=== PATIENT | male | born 1995 | race Two or more races ===

== ENCOUNTER 2024-01-01 18:13 | Emergency (ER) | payer MEDICAID, SELFPAY ==
[2024-01-01 18:37] VITALS: BP 133/83; PULSE 108; RESP 18; TEMP 36.9; O2SAT 99; BMI 25.0
--- NOTE | 2024-01-01 18:56 | EKG_ITS ---
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
--- NOTE | 2024-01-01 18:56 | PD.EDABDPN ---
ED Abdominal Pain RME/HPI General Chief Complaint: Abdominal Pain Stated complaint: ABD PAIN X TODAY; VOMITING, DIARRHEA Time seen by provider: 01/01/24 18:47 Arrival date/time: 01/01/24 18:13 RME / HPI RME / HPI narrative: Dr. Scruggs?s Main ED Evaluation: Patient is a 28-year-old male with no significant medical history who presents to the emergency department complaining of about 10 hours of generalized abdominal pain with multiple episodes of nausea with vomiting as well as diarrhea today. This is nonbilious and nonbloody emesis. Patient's diarrhea is normal stool color. Patient denies chest pain or dyspnea. Patient states no fevers, shakes, chills, sweats. No prior abdominal surgeries. Patient denies testicular pain, flank pain, recent trauma. Related Data Previous Rx's ?Medication ?Instructions ?Recorded ibuprofen 600 mg tablet 600 mg PO TID PRN pain #30 tabs 03/28/22 ondansetron 4 mg disintegrating 4 mg PO Q8H PRN nausea and 01/01/24 tablet vomiting 3 days #10 tabs Allergies Allergy/AdvReac Type Severity Reaction Status Date / Time No Known Allergies Allergy Verified 01/01/24 18:15 Review of Systems Review of Systems Systems Reviewed: All systems reviewed, normal except as documented Past Medical History Social History SMOKING STATUS: Never smoker ED Exam Narrative Physical exam: GENERAL APPEARANCE: alert and oriented x 4, well-developed, well-nourished, in moderate distress VITALS: All vitals were reviewed and the pulse ox is 99% on room air, which is normal according to my interpretation. HEENT: Normocephalic, atraumatic; pupils equal, round, reactive to light; EOMI; mucous membranes pink, moist; oropharynx clear NECK: Supple LUNGS: CTABL; no wheezes, no rales, no rhonchi HEART: Tachycardic, regular rhythm; normal S1, S2; no murmurs ABDOMEN: non distended; normal BS; soft, generalized mild abdominal tenderness, no guarding, no rebound; no masses, no organomegaly, no hernia BACK: no CVA tenderness EXTREMITIES: atraumatic; no edema NEUROLOGIC: awake; alert and oriented x4; cranial nerves II-XII grossly intact; no focal sensory or motor deficits PSYCHIATRIC: appropriate mood and affect SKIN: warm, dry, normal color; no rashes Course Course Course Narrative: 2155: Patient on ree-xam is feeling much better. Repeat abdominal exam is completely benign. Patient's heart rate is normalized. Will discharge and will give note for work. Strict return instructions given. Quality Measures none Orders Category Date Time Status EKG (ED ONLY) *Do not use* NOW Care 01/01/24 18:56 Completed Insert IV STAT Care 01/01/24 18:54 Completed Miscellaneous Nursing Order NOW Care 01/01/24 21:24 Completed NPO STAT Care 01/01/24 18:54 Completed Discharge Routine Discharge 01/01/24 21:57 Active EKG (ED Only) Stat Exams 01/01/24 18:56 Draft XR chest 1V portable Stat Exams 01/01/24 18:59 Completed CBC Stat Lab 01/01/24 19:24 Completed Comprehensive Metabolic Panel Stat Lab 01/01/24 19:24 Completed Lipase Stat Lab 01/01/24 19:24 Completed Magnesium Stat Lab 01/01/24 19:24 Completed Famotidine Inj [Pepcid Inj] Med 01/01/24 20:19 Discontinued 20 mg IVP X1 ONE Famotidine [Pepcid] Med 01/01/24 18:54 Discontinued 20 mg PO X1 ONE Morphine Inj Med 01/01/24 18:54 Discontinued 2 mg IVP Q30M PRN Ondansetron Inj [Zofran Inj] Med 01/01/24 18:54 Discontinued 4 mg IV Q1H PRN Sodium Chloride 0.9% 1000 ml [Ns] 1,000 ml Med 01/01/24 18:54 Discontinued IV 999 mls/hr Vital Signs Vital signs: Vital Signs Temperature 98.5 F 01/01/24 18:37 Pulse Rate 108 H 01/01/24 18:37 Respiratory Rate 18 01/01/24 18:37 Blood Pressure 133/83 H 01/01/24 18:37 Pulse Oximetry (%) 99 01/01/24 18:37 Oxygen Delivery Method Room Air 01/01/24 18:37 Abdominal Pain MDM MDM Narrative MDM Narrative:: Plan is to put an IV, hydrate, send labs including EKG, chest x-ray. Reevaluate in light of the labs. 19:02 EKG sinus tachycardia at 105. Normal axis no ectopy. No signs of acute ischemia. QRS 87, QTc 379 Patient is a 28-year-old male who presented to the emergency department with nausea, vomiting and diarrhea x 1 day. He was initially mildly tachycardic but otherwise his exam was reassuring. Patient was hydrated, medicated and a workup was ordered. Patient's workup revealed leukocytosis but otherwise reassuring studies. After hydration patient's tachycardia resolved as did his nausea with medication. Patient feels much better and was discharged home with prescriptions. He was very much encouraged to return for any worsening and otherwise will follow-up with his primary care doctor within the next several days. Patient data External records reviewed:: [facility] previous records (Per chart review, patient has no relevant previous ED visits or admissions to this facility.) Clinical information provided by:: patient Social determinants that could affect healthcare access:: none Patient has the following chronic illnesses:: none How is presenting disease/condition affected by chronic disease/condition?: no chronic disease Evaluation data The following diagnostics were reviewed and interpreted by me:: lab results, radiology exam(s) and EKG tracing(s) Lab and/or radiology exams considered but not ordered:: none Interpretation Summary: WBC count is elevated at 15.7, CMP is normal, Lipase is normal, UA is unremarkable, UDS is negative, according to my interpretation. CXR is negative for rib fractures, normal cardiac silhouette, no infiltrates, sharp diaphragmatic edge, according to my interpretation. EKG done at 1902, sinus tachycardia, rate of 105, normal axis, no ectopy, no acute ischemia, according to my interpretation. ---- [facility] Report [facility] [id number] Birthdate: 1995 Age/Sex: 28 / M Location: [facility] Attending Dr: Ordering Physician: Aditya Scruggs MD Date of Service: 01/01/24 Procedure(s): XR chest 1V portable Accession Number(s): [id number] cc: Nestor Livingston MD; NO PRIMARY/FAMILY,PHYSICIAN; Aditya Scruggs MD~ Examination: PA chest single view Technique: Upright PA chest single view Exam date and time: January 01, 2024 1903 hrs. Indications: Coughing today. Findings: Normal heart size Lungs are clear. The osseous structures are intact Impression: No active disease Dictated By: Nestor Livingston MD Signed By: <Electronically signed by Nestor Livingston MD in OV> 01/01/245 Medications / Prescriptions Medications or Prescriptions considered but not ordered:: none Medication administrations:: Medication Administration History Discontinued Medications Famotidine (Famotidine 20 Mg Tablet) 20 mg PO X1 ONE Stop: 01/01/24 18:55 Last Admin: 01/01/24 20:18 Dose: Not Given Documented By: SE Non-Admin Reason: Cancelled by Provider Famotidine (Famotidine Inj 10 Mg/Ml Vial 2 Ml) 20 mg IVP X1 ONE Stop: 01/01/24 20:20 Last Admin: 01/01/24 20:24 Dose: 20 mg Documented By: SF Sodium Chloride (Ns) 1,000 mls @ 999 mls/hr IV .Q1H1M ONE Stop: 01/01/24 19:54 Last Infusion: 01/01/24 22:02 Dose: Infused Documented By: Admin: 01/01/24 20:23 Dose: 999 mls/hr Documented By: SF Morphine Sulfate (Morphine Sulf Inj 10 Mg/Ml Vial) 2 mg IVP Q30M PRN PRN Reason: abdominal pain Stop: 01/01/24 20:55 Ondansetron HCl (Ondansetron Inj 2 Mg/Ml Inj 2 Ml) 4 mg IV Q1H PRN PRN Reason: PERSISTENT NAUSEA OR VOMITING see above Consultations Consultation(s) initiated? (list below): No Diagnosis Differential diagnosis abdominal pain: acute appendicitis, constipation, diverticulitis, gastroenteritis, pancreatitis and other (cholelithiasis, cholecystitis) Most likely diagnosis given after review of the tests above:: see below Admission Indicated Admission indicated?: not indicated Admission Request Was there a request for admission?: No Disposition Plan Disposition Plan: Discharge Discharge Attestation Discharge Attestation: The patient and all family members were given an opportunity to ask questions and understood the discharge instructions. Discharge instructions specifically effects, indications for sooner follow up or return to the emergency department, and the expected course of current diagnosis. Patient condition: Stable Discharge Plan Plan Patient Disposition: HOME (Self Care) Disposition Comment: Stable for discharge Patient condition on transfer: Stable Prescriptions/Referrals Prescriptions/Med Rec: New ondansetron 4 mg tablet,disintegrating 4 mg PO Q8H PRN (Reason: nausea and vomiting) 3 Days Qty: 10 0RF No Action ibuprofen 600 mg tablet 600 mg PO TID PRN (Reason: pain) Qty: 30 0RF Referrals: No Primary/Family,Physician [Primary Care Provider] - In 1 week Problem List Clinical Impression: Vomiting, Diarrhea, Dehydration Patient/Caregiver Discharge Instructions Discharge Activity: activity as tolerated Diet Instructions: As tolerated Education Materials: ED Dehydration (Adult), ED Diarrhea, Unknown Cause, ED Vomiting (Adult) Additional Instructions: Please return to the emergency department for any worsening or any further medical problems Take all medications as directed Print Language: Polish Stand Alone Forms: Jazmine Award Info., Work/School Release, Patient Portal Info Letter
--- NOTE | 2024-01-01 18:59 | XR_ITS ---
Examination: PA chest single view Technique: Upright PA chest single view Exam date and time: January 01, 2024 1903 hrs. Indications: Coughing today. Findings: Normal heart size Lungs are clear. The osseous structures are intact Impression: No active disease
[2024-01-01 19:30] LABS: Basophils % (Auto) 0 % (0-2.5); Eosinophils # (Auto) 0.1 Thou/mm3 (0.0-0.5); Eosinophils % (Auto) 1 % (0-10); Hematocrit 47.6 % (41.0-53.0); Hemoglobin 16.6 g/dL (13.5-16.0); Immature Granulocytes % (Auto) 0 % (0-0); Immature Granulocytes Auto 0.04 Thou/mm3 (0.00-0.00); Lymphocytes # (Auto) 0.7 Thou/mm3 (1.0-4.8); Lymphocytes % (Auto) 4 % (10-50); Mean Corpuscular HGB Conc 34.9 g/dl (31.0-37.0); Mean Corpuscular Volume 89 fL (80-100); Monocytes # (Auto) 0.8 Thou/mm3 (0.0-0.8); Monocytes % (Auto) 5 % (0-12); Neutrophils % (Auto) 90 % (37-80); Nucleated Red Blood Cell % 0 /100 WBC (0); Platelet Count 297 Thou/mm3 (140-440); RDW Standard Deviation 41.6 fL (35.1-43.9); Red Blood Count 5.35 Miln/mm3 (4.50-5.90); White Blood Count 15.7 Thou/mm3 (3.8-10.6)
[2024-01-01 19:49] LABS: Alanine Aminotransferase 21 U/L (10-49); Albumin, Serum 5.1 gm/dL (3.5-5.0); Albumin/Globulin Ratio 2.1 (1.2-2.2); Alkaline Phosphatase 74 U/L (46-116); Anion Gap 10 (7-16); Aspartate Amino Transferase 26 U/L (0-34); BUN/Creatinine Ratio 18 Ratio (12-20); Blood Urea Nitrogen 18 mg/dL (9-23); Calcium 9.7 mg/dL (8.3-10.6); Calcium (Corrected) 9.7 mg/dL (8.5-10.1); Carbon Dioxide 26.2 mMol/L (20.0-31.0); Chloride 101 mMol/L (98-107); Estimated Creatinine Clearance 97.4 mL/min (>60); Globulin 2.4 gm/dL (2.3-3.5); Glucose 101 mg/dL (74-106); Lipase 31 U/L (12-53); Magnesium 1.7 mg/dL (1.6-2.6); Osmolality,Calculated 275 (275-295); Potassium 3.8 mMol/L (3.4-5.1); Sodium 137 mMol/L (136-145); Total Protein 7.5 gm/dL (5.7-8.2); eGFR > 60 See Note
[2024-01-01] MEDS: SODIUM CHLORIDE 0.9% 1000 ML 1,000 ML 999 ML IV (20:23)
[2024-01-01] MEDS: FAMOTIDINE INJ 10 MG/ML VIAL 2 ML 20 MG IVP (20:24)
== END 2024-01-01 22:11 | disposition home or self-care (01) ==
PROVIDERS: Emergency Provider Emergency Medicine
DX: E86.0 Dehydration (principal); R19.7 Diarrhea, unspecified; R11.10 Vomiting, unspecified; R05.9 Cough, unspecified; R00.0 Tachycardia, unspecified
CPT/HCPCS: 36415; 71045; 80053; 83690; 83735; 85025; 93005; 96361; 96374; 99284; J3490; J7030

== ENCOUNTER 2024-08-22 22:57 | Emergency (ER) | payer MEDICAID, SELFPAY ==
[2024-08-22 23:00] VITALS: BP 130/83; PULSE 110; RESP 18; TEMP 37.6; O2SAT 97; BMI 26.6
[2024-08-23] MEDS: NAPROXEN 250 MG TABLET 500 MG PO (00:31)
[2024-08-23 00:53] LABS: Strep A Rapid Negative (Negative)
[2024-08-23 01:26] VITALS: BP 121/77; PULSE 96; RESP 16; TEMP 37.1; O2SAT 97
--- NOTE | 2024-08-23 04:31 | PD.EDURI ---
Upper Respiratory Inf. RME/HPI General Chief Complaint: Extremity Injury, Lower Stated Complaint: bilat knee pain, and nv started Time Seen by Provider: 08/23/24 00:09 Arrival date/time: 08/22/24 22:57 29M with no significant PMH presents to ED with 2 months of bilateral knee pain w/o fall/trauma. Today, there was more generalized body/joint pain, as well as some N/V and generalized fatigue. Patient denies URI symptoms, ab pain, diarrhea, dysuria, surgeries, drug/alcohol abuse, and sick contacts. Limitations: no limitations Related Data Previous Rx's ?Medication ?Instructions ?Recorded ibuprofen 600 mg tablet 600 mg PO TID PRN pain #30 tabs 03/28/22 Allergies Allergy/AdvReac Type Severity Reaction Status Date / Time No Known Allergies Allergy Verified 08/22/24 23:03 Review of Systems Review of Systems Systems Reviewed: All systems reviewed, normal except as documented Constitutional Constitutional: Reports system reviewed and no additional complaints, except as documented, Reports as per HPI, Reports body ache(s), Reports fatigue, Denies fever(s) and Denies headache(s) ENT Ears, Nose, Mouth, and Throat: Denies disequilibrium and Denies headache(s) Cardiovascular Cardiovascular: Reports system reviewed and no additional complaints, except as documented, Denies chest pain and Denies dyspnea Respiratory Respiratory: Reports system reviewed and no additional complaints, except as documented, Denies cough and Denies dyspnea Gastrointestinal Gastrointestinal: Reports system reviewed and no additional complaints, except as documented, Denies abdominal pain, Denies nausea and Denies vomiting Musculoskeletal Musculoskeletal: Reports as per HPI and Reports arthralgias Neurologic Neurologic: Reports system reviewed and no additional complaints, except as documented, Denies confusion, Denies disequilibrium and Denies headache(s) Psychiatric Psychiatric: Denies confusion Endocrine Endocrine: Reports fatigue Past Medical History Social History SMOKING STATUS: Never smoker ED Exam General Limitations: Present no limitations General appearance: Present alert and in no apparent distress Head Head exam: Present atraumatic Eye Eye exam: Present normal appearance, PERRL and EOMI ENT ENT exam: Present mucous membranes moist Expanded ENT Exam Throat exam: Present tonsillar erythema and tonsillomegaly; Absent tonsillar exudate, R peritonsillar mass, L peritonsillar mass or muffled voice Neck Neck exam: Present normal inspection, full ROM and trachea midline Chest Chest inspection: Present normal inspection and symmetric chest wall rise Respiratory Respiratory exam: Present normal lung sounds bilaterally Cardiovascular Cardiovascular exam: Present regular rate, normal rhythm and normal heart sounds Abdominal Exam Abdominal exam: Present soft and normal bowel sounds Extremities Exam Extremities exam: Present normal inspection and full ROM Back Exam Back exam: Present normal inspection and full ROM Neurological Exam Neurological exam: Present alert, oriented X3 and CN II-XII intact Psychiatric Psychiatric exam: Present normal affect and normal mood Skin Skin exam: Present warm, dry, intact and normal color Course Quality Measures none Orders Category Date Time Status Bedside COVID-19 Antigen Test NOW Care 08/23/24 00:09 Completed Bedside Influenza A&B Antigen Test NOW Care 08/23/24 00:09 Completed Strep A Rapid Stat Lab 08/23/24 00:20 Completed Naproxen [Naprosyn] Med 08/23/24 00:09 Discontinued 500 mg PO X1 ONE Vital Signs Vital signs: Vital Signs Temperature 99.7 F 08/22/24 23:00 Pulse Rate 110 H 08/22/24 23:00 Respiratory Rate 18 08/22/24 23:00 Blood Pressure 130/83 08/22/24 23:00 Pulse Oximetry (%) 97 08/22/24 23:00 Oxygen Delivery Method Room Air 08/22/24 23:00 O2 at 97% on RA and WNLs Upper Respiratory Infection MDM Narrative MDM Narrative:: 29M with no significant PMH presents to ED with 2 months of bilateral knee pain w/o fall/trauma. Today, there was more generalized body/joint pain, as well as some N/V and generalized fatigue. Patient denies URI symptoms, ab pain, diarrhea, dysuria, surgeries, drug/alcohol abuse, and sick contacts. Physical exam reveals clear lungs, but red and swollen oropharynx. Knee exam normal. Normal WOB. Speech normal. Gait normal. Patient is afebrile, alert, but upset. Swabs neg. Meds improved symptoms. Card Mounter given. Patient data External records reviewed:: [facility] previous records Clinical information provided by:: patient Social determinants that could affect healthcare access:: none Patient has the following chronic illnesses:: none How is presenting disease/condition affected by chronic disease/condition?: no chronic disease Evaluation data The following diagnostics were reviewed and interpreted by me:: lab results Lab and/or radiology exams considered but not ordered:: ordered Interpretation Summary: above Medications / Prescriptions Medications or Prescriptions considered but not ordered:: ordered Medication administrations:: Medication Administration History Discontinued Medications Naproxen (Naproxen 250 Mg Tablet) 500 mg PO X1 ONE Stop: 08/23/24 00:10 Last Admin: 08/23/24 00:31 Dose: 500 mg Documented By: KANU above Consultations Consultation(s) initiated? (list below): No Diagnosis Upper Respiratory Differential Diagnosis: upper respiratory infection, croup, otitis media, sinusitis, viral infection, bronchitis, influenza, pharyngitis and other (arthralgia) Most likely diagnosis given after review of the tests above:: arthralgia Admission Indicated Admission indicated?: not indicated Admission Request Was there a request for admission?: No Disposition Plan Disposition Plan: Discharge Discharge Attestation Discharge Attestation: The patient and all family members were given an opportunity to ask questions and understood the discharge instructions. Discharge instructions specifically effects, indications for sooner follow up or return to the emergency department, and the expected course of current diagnosis. Patient condition: Stable Discharge Plan Plan Patient Disposition: HOME (Self Care) Discharge Disposition comment: Stable Prescriptions/Referrals Prescriptions/Med Rec: No Action ibuprofen 600 mg tablet 600 mg PO TID PRN (Reason: pain) Qty: 30 0RF Problem List Clinical Impression: Arthralgia Patient/Caregiver Discharge Instructions Education Materials: ED Arthralgia Additional Instructions: Please follow-up with PCP within 24-48 hours and return immediately if symptoms worsen. If problem persists, recommend outpatient PT and/or MRI follow-up. In the meantime, rest, use ice/heat, and/or compression. NSAIDs like ibuprofen tend to work better for this type of pain. Print Language: Serbian Stand Alone Forms: Patient Portal Info Letter PA/REGISTERED RESPIRATORY TECHNICIAN Supervising Physician SHUN/REGISTERED RESPIRATORY TECHNICIAN Supervising Physician: Dr. Mcadams
== END 2024-08-23 01:50 | disposition home or self-care (01) ==
LOC: SERX 08-23 03:33
PROVIDERS: Physician Assistant; Emergency Provider Emergency Medicine; PCP Family Medicine
DX: M25.562 Pain in left knee (principal); M25.561 Pain in right knee
CPT/HCPCS: 87400; 87651; 87811; 99283; A9270

== ENCOUNTER → 2024-11-04 | Outpatient (CLI) | payer MEDICAID, SELFPAY ==
--- NOTE | 2024-11-04 16:42 | XR_ITS ---
Examination: Knee bilateral, 6 views Technique: Knee AP, lateral, oblique each knee total 6 views Date and time of exam: November 04, 2024, 1700 hrs. Indications: Bilateral knee pain beginning 4 months ago. Findings: No fracture or dislocation involving either knee No erosive or other significant arthritic change involving either knee No ossified joint bodies Impression: Negative for osseous abnormalities
== END | disposition home or self-care (01) ==
PROVIDERS: PCP Physician Assistant; Referring Provider Physician Assistant; Visit Provider Physician Assistant
DX: M25.562 Pain in left knee (principal); M25.561 Pain in right knee
CPT/HCPCS: 73562